=== PATIENT | male | born 1960 | race Two or more races ===

== ENCOUNTER 2023-10-25 17:19 | Emergency (ER) | payer BC ==
[2023-10-25 18:16] LABS: Absolute Basophils 0.1 K/uL (0-0.5); Absolute Eosinophils 0.5 K/uL (0-0.5); Absolute Lymphocytes (CBC) 1.7 K/uL (0.7-4.9); Absolute Monocytes 1.1 K/uL (0.1-1.3); Absolute Neutrophil 6.2 K/uL (1.8-8.0); Basophils % 0.7 % (0-1.3); Eosinophils % 5.6 % (0-4.4); Hematocrit 38.9 % (39.6-49.0); Hemoglobin 12.9 g/dL (13.6-17.9); Lymphocytes % 17.6 % (15.3-44.8); MCH 30.1 pg (27.0-35.0); MCHC 33.2 g/dL (32.0-36.0); MCV 90.9 fL (80-100); MPV 7.9 fL (7.6-11.3); Monocytes % 11.5 % (3.3-12.3); Neutrophils % 64.6 % (41.7-73.7); Platelets 182 thou/uL (152-406); RBC Red Blood Cell Count 4.28 M/uL (4.33-5.43); Red Cell Distribution Width 14.1 % (12.1-15.2)
[2023-10-25 18:33] LABS: Anion Gap 6.3 mEq/L (5.0-15.0); Potassium 3.3 mEq/L (3.5-5.1)
--- NOTE | 2023-10-25 18:36 | EDPHYS ---
Physician Documentation [facility] Name: Wilver Mott Age: 63 yrs Sex: Male : 1960 Arrival Date: 10/25/2023 Time: 17:19 Bed 7 Private MD: ED Physician Jose Gagnon HPI: 10/24 17:22 This 63 yrs old presents to ER via Unassigned with complaints of heat ec2 exposure. 17:22 patient is a 63-year-old transgender male to female individual. Patient arrives today ec2 due to concern for heat exhaustion. Patient reports poor fluid intake, no nausea or vomiting, reports that they felt tired and dehydrated, subsequently called EMS, EMS had started a liter of fluid with an IV and patient now feels markedly better.. Historical: - Allergies: 17:34 No Known Allergies; ld1 - PMHx: 17:34 Diabetes mellitus; Hypertensive disorder; ld1 - PSHx: 17:34 Tonsillectomy; ld1 - Immunization history:: Adult Immunizations up to date. - Infectious Disease History:: Denies. - Social history:: Smoking status: Patient denies any tobacco usage or history of. ROS: 17:22 Constitutional: as per hpi ec2 Exam: 17:22 Constitutional: GEN: NAD Head: atraumatic Eyes: EOMI Ears: External ears are ec2 normal. CV: regular rate LUNGS: no respiratory distress ABD: non-distended SKIN: no evidence of rashes MSK: no evidence of trauma Vital Signs: 17:33 BP 116 / 69; Pulse 89; Resp 18; Temp 98.1(TE); Pulse Ox 100% on R/A; Weight 81.65 kg; ld1 Height 5 ft. 10 in. ; Pain 0/10; 18:22 BP 107 / 69; Pulse 83; Resp 18; Pulse Ox 100% on R/A; mb9 17:33 Body Mass Index 25.83 (81.65 kg, 177.8 cm) ld1 17:33 Pain Scale: Adult ld1 MDM: 17:20 Patient medically screened. ec2 17:22 Data reviewed: vital signs. ED course: Patient arrives today for evaluation of heat ec2 exhaustion. Examination remarkable for well-appearing nontoxic individuals otherwise in no acute distress with a reassuring examination. Will obtain basic lab work, CPK. Evaluating for electrolyte disturbances, anemia, dehydration, heat exhaustion. Will give the patient additional crystalloid as well.. 18:36 ED course: Labs nonactionable. On reassessment patient remains well-appearing in no ec2 acute distress. Will discharge home. Return precautions given.. 10/24 17:21 Order name: CBC with Diff; Complete Time: 18:35 ec2 10/24 17: Order name: BMP; Complete Time: 18:35 ec2 10/24 17: Order name: CK; Complete Time: 18:35 ec2 Administered Medications: 17:30 Drug: NS 0.9% IV 1000 ml IV at 1 bolus Per protocol; 1000 mL bolus Route: IV; Rate: 1 ar6 bolus; Site: left antecubital; 18:23 Follow up: Response: No adverse reaction; IV Status: Completed infusion mb9 Disposition Summary: 10/25/23 18:36 Discharge Ordered Notes: Location: Home ec2 Condition: Stable ec2 Diagnosis - Dehydration ec2 Followup: ec2 - With: Private Physician - When: - Reason: Re-evaluation by your physician Discharge Instructions: - Discharge Summary Sheet ec2 - Dehydration, Adult ec2 Forms: - Medication Reconciliation Form ec2 - Antibiotic Education ec2 - Prescription Opioid Use ec2 - Patient Portal Instructions ec2 - Leadership Thank You Letter ec2 Signatures: Dispatcher [employer] Kim Real RN RN ld1 Jose Gagnon MD MD ec2 Mishel Beyer RN RN ar6 Daniella Szymanski RN mb9 Corrections: (The following items were deleted from the chart) 17:34 17:34 Allergies: Aspirin; ld1 ld1
--- NOTE | 2023-10-25 18:36 | ER ---
Nurse's Notes [facility] Name: Wilver Mott Age: 63 yrs Sex: Male : 1960 Arrival Date: 10/25/2023 Time: 17:19 Bed 7 Private MD: Diagnosis: Dehydration Presentation: 10/24 17:25 Coronavirus screen: At this time, the client does not indicate any symptoms associated ld1 with coronavirus-19. Ebola Screen: No symptoms or risks identified at this time. Initial Sepsis Screen: Does the patient meet any 2 criteria? No. Patient's initial sepsis screen is negative. Does the patient have a suspected source of infection? No. Patient's initial sepsis screen is negative. Risk Assessment: Do you want to hurt yourself or someone else? Patient reports no desire to harm self or others. Onset of symptoms was October 25, 2023. 17:25 Method Of Arrival: EMS: [facility] ld1 17:25 Acuity: CHAD 3 ld1 17:33 Chief complaint: EMS states: toned out to side of road - pt trying to get to [facility]. ld1 C/O dehydration/over heated. Triage Assessment: 17:25 General: Appears in no apparent distress. comfortable, Behavior is calm, cooperative, ld1 appropriate for age. Pain: Denies pain. EENT: No signs and/or symptoms were reported regarding the EENT system. Neuro: Level of Consciousness is awake, alert, obeys commands, Oriented to person, place, time, situation, Appropriate for age. Cardiovascular: Capillary refill < 3 seconds Patient's skin is warm and dry. Respiratory: Airway is patent Respiratory effort is even, unlabored. GI: Abdomen is flat, non-distended. : No signs and/or symptoms were reported regarding the genitourinary system. Derm: No signs and/or symptoms reported regarding the dermatologic system. Musculoskeletal: No signs and/or symptoms reported regarding the musculoskeletal system. Historical: - Allergies: 17:34 No Known Allergies; ld1 - PMHx: 17:34 Diabetes mellitus; Hypertensive disorder; ld1 - PSHx: 17:34 Tonsillectomy; ld1 - Immunization history:: Adult Immunizations up to date. - Infectious Disease History:: Denies. - Social history:: Smoking status: Patient denies any tobacco usage or history of. Screenin:34 [facility] ED Fall Risk Assessment (Adult) History of falling in the last 3 months, ld1 including since admission No falls in past 3 months (0 pts) Confusion or Disorientation No (0 pts) Intoxicated or Sedated No (0 pts) Impaired Gait No (0 pts) Mobility Assist Device Used No (0 pt) Altered Elimination No (0 pt) Score/Fall Risk Level 0 - 2 = Low Risk Oriented to surroundings, Maintained a safe environment, Educated pt \T\ family on fall prevention, incl call for assistance when getting out of bed, Assessed \T\ reinforced patient's understanding of fall precautions, Provided non-skid footwear, Hourly rounding (assess needs \T\ fall precautionary measures) done, Used ambulatory aids as needed (educated on \T\ assisted with), Used gait belt as appropriate. Abuse screen: Denies threats or abuse. Denies injuries from another. Nutritional screening: No deficits noted. Tuberculosis screening: No symptoms or risk factors identified. Assessment: 17:34 Reassessment: See triage assessment. ld1 Vital Signs: 17:33 BP 116 / 69; Pulse 89; Resp 18; Temp 98.1(TE); Pulse Ox 100% on R/A; Weight 81.65 kg; ld1 Height 5 ft. 10 in. ; Pain 0/10; 18:22 BP 107 / 69; Pulse 83; Resp 18; Pulse Ox 100% on R/A; mb9 17:33 Body Mass Index 25.83 (81.65 kg, 177.8 cm) ld1 17:33 Pain Scale: Adult ld1 ED Course: 17:20 Patient arrived in ED. ec2 17:20 Jose Gagnon MD is Attending Physician. ec2 17:25 Kim Gomez, TIMO is Primary Nurse. ld1 17:25 Triage completed. ld1 17:25 Arm band placed on right wrist. ld1 17:34 Patient has correct armband on for positive identification. Placed in gown. Bed in low ld1 position. Call light in reach. Side rails up X2. metal coater on. Pulse ox on. NIBP on. Door closed. Noise minimized. Warm blanket given. 18:06 CK Sent. ar6 18:07 BMP Sent. ar6 18:07 CBC with Diff Sent. ar6 18:46 No provider procedures requiring assistance completed. IV discontinued, intact, mb9 bleeding controlled, No redness/swelling at site. Pressure dressing applied. Administered Medications: 17:30 Drug: NS 0.9% IV 1000 ml IV at 1 bolus Per protocol; 1000 mL bolus Route: IV; Rate: 1 ar6 bolus; Site: left antecubital; 18:23 Follow up: Response: No adverse reaction; IV Status: Completed infusion mb9 Medication: 18:22 VIS not applicable for this client. mb9 Outcome: 18:36 Discharge ordered by . [email or web address] 18:46 Discharged to home ambulatory, mb9 18:46 Condition: stable 18:46 Discharge instructions given to patient, Instructed on discharge instructions, follow up and referral plans. Demonstrated understanding of instructions, follow-up care, 18:46 Patient left the ED. mb9 Signatures: Kim Gomez RN RN ld1 Daniella Szymanski RN RN mb9 Jose Gagnon MD MD ec2 Roberts, Amber RN RN ar6 Corrections: (The following items were deleted from the chart) 17:34 17:34 Allergies: Aspirin; ld1 ld1
[2023-10-25 18:55] VITALS: TEMP 98.1; O2SAT 100
[2023-10-25 18:57] VITALS: BP 107/69
== END 2023-10-25 18:46 | disposition home or self-care (01) ==
LOC: ER 17:19
DX: E86.0 Dehydration (principal)
CPT/HCPCS: 36415; 80048; 82550; 85025

== ENCOUNTER 2023-10-29 20:41 | Emergency (ER) | payer BC ==
--- OUTSIDE RECORDS SUMMARY | 2023-10-29 20:44 | XMS REPORT | Continuity of Care Document ---
Author Name Unknown Address [address] [facility] [address] [place] [address] [facility] thconnect Address [address] [facility] [place] [address] Care Team Providers Care Office Assistant Receptionist Name Role Phone Iftikhar Amaya Attending Clinician Héctor Carcamo Admitting Clinician Unavailable Payers Payer Name Policy Type Policy Number Effective Date Expirati on Date Source [facility] [id number] [facility] [id number] Allergies, Adverse Reactions, Alerts Allergy Name Allergy Type Status Severity Reaction(s) Onset Date Inactive Date Treating Clinician Comments Source epinephr ine DA Active U UNKNOWN 09-29 00:00: 00 [facility] Insect Stings EA Active Life[employer] Wasp EA Active LifeBook No Known/Ne w Allergie s Allergy Active Zscaler Encounters Start Date/Time End Date/Time Encounter Type Admission Type Attending Clinicians Care Facility Care Department Encounter ID Source 2023-10-20 09:10:28 Emergency HFD HFD [id number] [facility] ent 2023-09-29 14:40:00 Outpatient [facility] [id number] [facility] 2023-09-28 14:55:02 Outpatient [facility] [id number] [facility] 2023-09-30 06:51:00 2023-09-30 12:28:00 Emergency EM Iftikhar Amaya [facility] [id number] [facility] 2023-06-16 00:00:00 2023-06-16 00:00:00 Outpatient [facility] [id number] [facility] 2023-05-17 00:00:00 2023-05-17 00:00:00 Outpatient [facility] MED [id number] [facility] 2023-05-03 00:00:00 2023-05-03 00:00:00 Outpatient [facility] [id number] [facility] 2023-04-05 00:00:00 2023-04-05 00:00:00 Outpatient [facility] MED [id number] [facility] 2023-03-27 00:00:00 2023-03-27 00:00:00 Outpatient [facility] MED [id number] [facility] 2023-03-23 00:00:00 2023-03-23 00:00:00 Outpatient [facility] [id number] [facility] 2023-03-07 00:00:00 2023-03-07 00:00:00 Outpatient [facility] [id number] [facility] 2023-02-21 00:00:00 2023-02-21 00:00:00 Outpatient [facility] [id number] [facility] 2023-02-17 00:00:00 2023-02-17 00:00:00 Outpatient [facility] [id number] [facility] 2023-02-07 00:00:00 2023-02-07 00:00:00 Outpatient [facility] MED [id number] [facility] 2023-01-20 00:00:00 2023-01-20 00:00:00 Outpatient [facility] MED [id number] [facility] Results Test Description Test Time Test Comments Results Result Co mments Source [id number] 09:24:00* Test Item Value Reference Range Interpretation Comme nts D-DIMER (test code = DDIMER) <215 ng/mLFEU 215-500 L THROMBOSIS AND/O R PULMONARY EMBOLISM AND THE CLINICAL CUT-OFF VALUE FOR EXCLUSION (500 ng/mL FEU) OF THESE CONDITIONSIS VALIDATED BY THE PET FEEDER OF THE METHOD. A NEGATIVE D-DIMER RESULT WHEN COMBINED WITH A CLINICALASSESSMENT OF LOW PRETEST PROBABILITY HAS BEEN SHOWN TO HAVEA HIGH NEGATIVE PREDICTIVE VALUE OF DVT OR PE. D-DIMER VALUES >500 ng/mL FEU ARE NOT DIAGNOSTIC FOR DVT, PEor DIC WITHOUT OTHER CONFIRMATORY TESTS AND APPROPRIATECLINICAL EUALUATIONS. BASIC METABOLIC [id number] 08:50:00* Test Item Value Reference Range Interpretation Comme nts SODIUM (test code = NA) 144 mmol/L 136-145 N POTASSIUM (test code = K) 3.8 mmol/L 3.4-5.0 N CHLORIDE (test code = CL) 105 mmol/L 98-107 N CARBON DIOXIDE (test code = CO2) 30 mmol/L 21-32 N ANION GAP (test code = GAP) 9 GAP calc 4-15 N GLUCOSE (test code = GLU) 65 MG/DL 70-110 L BLOOD UREA NITROGEN (test code = BUN) 14 MG/DL 7-18 N GLOMERULAR FILTRATION RATE (test code = GFR) >=60 max estimate estGFR >60 The Glomerular Filtration Rate is a calculated parameterbased on serum Creatinine, patient age and sex. GFR valuesless than 60 mL/min/1.73 square meters are indicative ofChronic Kidney Disease. Values less than 15 mL/min/1.73square meters indicate Kidney failure. The calculation forGFR is based on the CKD-EPI (202) calculation. This formulais race indifferent and is the recommended formula for GFRby the National Kidney Foundation for Adults.The GFR will not calculate if the sex is unknown or if thepatient's age is <18 years. CREATININE (test code = CREAT) 0.8 MG/DL 0.6-1.0 N CALCIUM (test code = CA) 9.4 MG/DL 8.5-10.1 N HEPATIC FUNCTION [id number] 08:50:00* Test Item Value Reference Range Interpretation Comme nts TOTAL PROTEIN (test code = PROT) 7.4 G/DL 6.4-8.2 N ALBUMIN (test code = ALB) 3.7 G/DL 3.4-5.0 N BILIRUBIN TOTAL (test code = BILT) 0.7 MG/DL 0.0-1.0 N BILIRUBIN DIRECT (test code = BILD) 0.2 MG/DL 0.0-0.3 N BILIRUBIN INDIRECT (test cod e = BILIND) 0.50 MG/DL 0.2-1.2 N SGOT/AST (test code = AST) 25 Unit/L 15-37 N SGPT/ALT (test code = ALT) 37 Unit/L 30-65 N ALKALINE PHOSPHATASE TOTAL ( test code = ALKP) 77 Unit/L 50-136 N CREATINE KINASE (CK)2023-09-30 08:50:00* Test Item Value Reference Range Interpretation Comme nts CREATINE KINASE (CK) (test c ode = CK) 75 Unit/L 21-215 N [id number] 08:50:00* Test Item Value Reference Range Interpretation Comme nts LIPASE (test code = LIP) 39 Unit/L 13-75 N NT PRO-BRAIN NATRIURETIC [id number] 08:50:00* Test Item Value Reference Range Interpretation Comme nts NT PRO-BRAIN NATRIURETIC PEP TI (test code = PROBNP) 101 PG/ML 0-100 H TROP-I HIGH [id number] 08:50:00* Test Item Value Reference Range Interpretation Comme nts TROP-I HIGH SENSITIVITY (test code = TROPIHS) 4.1 ng/L 0-78 N CAUTION: Units o f the current test methodology (ng/L) differfrom the prior test methodology (ng/mL) by a factor of 1000. 99th Percentile Upper Reference Limit (URL):Females: 54 ng/LMales: 79 ng/L In order to distinguish acute elevations of high sensitivitytroponin from other clinical conditions, the FourthUniversal Definition of Myocardial Infarction stressesclinical assessment and the demonstration of a rise and/orfall in serial troponin results above the URL. Results from different methodologies should not be comparedto one another as quantitative results and URLs may varyby method. Notes Date/Time Note Provider Source 2023-09-30 07:41:00 [facility] ([facility]) EMERGENCY PROVIDER REPORT REPORT#:[id number] REPORT STATUS: Signed DATE:09/30/23 TIME:740 PATIENT: SANAZ JAY UNIT #: [id number] ROOM/BED: : 61 AGE: 63 SEX: M PCP PHYS: Héctor Hebert MD SERVICE AUTHOR: Iftikhar Amaya MD * ALL edits or amendments must be made on the electronic/computer document * HPI-General Illness Free Text HPI Notes Free Text HPI Notes ##HPI Patient with reported history of hypertension diabetes presents today with concerns of chest pain. Patient reports she lives at a group home house. Patient was in an argument with somebody. Patient reports she experienced intermittent pain to the middle of the chest after the argument. On presentation, patient reports she feels better. She denies active chest pain, shortness of breath palpitations. No fever chills or sweats. [## Electrocardiogram] ## EKG interpretation done by emergency medicine physician (Dr. Olvera) EKG done during the patient's visit on 09/30/2023 done and interpreted at 719, shows ventricular rate of 60, normal [place] interval, normal QRS, normal QTc.. EKG does not meet STEMI Criteria. ##Review of Systems Constitutional symptoms: Negative except as documented in HPI. Skin symptoms: Negative except as documented in HPI. Eye symptoms: Negative except as documented in HPI. ENMT symptoms: Negative except as documented in HPI. Respiratory symptoms: Negative except as documented in HPI. Cardiovascular symptoms: Negative except as documented in HPI. Gastrointestinal symptoms: Negative except as documented in HPI. Genitourinary symptoms: Negative except as documented in HPI. Musculoskeletal symptoms: Negative except as documented in HPI. Neurologic symptoms: Negative except as documented in HPI. Psychiatric symptoms: Negative except as documented in HPI. Endocrine symptoms: Negative except as documented in HPI. Hematologic/Lymphatic symptoms: Negative except as documented in HPI. Allergy/immunologic symptoms: Negative except as documented in HPI. [##Physical Exam] General: Alert, no acute distress, Not ill-appearing. Skin: Warm, intact, no pallor, appropriate for ethnicity. Head: Atraumatic. Eye: Extraocular movements are intact, normal conjunctiva. Cardiovascular: Regular rate and rhythm, No murmur, Normal peripheral perfusion , No edema. Respiratory: Lungs are clear to auscultation, respirations are non-labored, breath sounds are equal, Symmetrical chest wall expansion. Gastrointestinal: Soft, Nontender, Non distended. Back: Normal range of motion. Musculoskeletal: Normal ROM. Neurological: Alert and oriented to person, place, time, and situation, normal motor observed, normal speech observed. No focal deficits noted. Psychiatric: Cooperative, appropriate mood affect. ##Medical decision making Patient presenting with atypical chest pain. Patient reports he experienced some chest discomfort after arguing with a person at a group home home. On presentation, patient denies active chest pain, shortness of breath palpitations. Patient heart score is low. Presentation is not consistent with ACS. There is low concern for ACS at this time. Troponin negative x2 with negative delta troponin. EKG without signs of acute ischemia, not consistent with STEMI, see EKG read above. There is low concern for STEMI NSTEMI angina unstable angina. 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 Low concern for acute pulm embolism, low concern for dissection. White blood cell count normal. Patient eating and drinking without difficulty. Low concern for emergent pathology. Patient stable for outpatient follow-up. Given the large differential diagnosis for this patient, the decision making in this case is of high complexity. After evaluating all available data, history of physical examination as well as results of the work-up, patient's presentation is not consistent with but not limited to ACS, STEMI, NSTEMI, myocardial ischemia, pulmonary embolism, acute aortic dissection, Boerhaave's syndrome, arrhythmia, pneumothorax, cardiac tamponade, pneumonia, severe COPD, severe asthma, severe CHF. All results were discussed with patient. All questions were answered Plan to follow-up with primary care doctor and cardiology in 24 to 48 hours. Return precautions were discussed with patient Dispo: Discharge I have spoken with the patient and/or caregivers. I have explained the patient's condition, diagnoses and treatment plan based on the information available to me at this time. I have answered the patient's and/or caregiver's questions and addressed any concerns. The patient and/or caregivers have as good an understanding of the patient's diagnosis, condition and treatment plan as can be expected at this point. The vital signs have been stable. The patient's condition is stable and appropriate for discharge from the emergency department. The patient will pursue further outpatient evaluation with the primary care physician or other designated or consulting physician as outlined in the discharge instructions. The patient and/or caregivers are agreeable to this plan of care and follow-up instructions have been explained in detail. The patient and/or caregivers have received these instructions in written format and have expressed an understanding of the discharge instructions. The patient and/or caregivers are aware that any significant change in condition or worsening of symptoms should prompt an immediate return to this or the closest emergency department or a call to 911. Iftikhar Melendez MD Emergency Medicine General Initial Greet Date/Time 09/30/23 0657 Presentation Chief Complaint chest pain Risk Strat-Chest Pain CAD risk: risk factors reviewed TAD risk: risk factors reviewed PE risk: risk factors reviewed Risk-Chest Pain 40 and Over Risk Stratification HEART Score for MACE 0-3 (low risk 0.9%-1.7%) Past Medical History - Adult Stated Complaint CHEST PAIN Allergies Coded Allergies: epinephrine (UNKNOWN 09/30/23) Smoking status for patients 13 years old or older: Unknown,if ever smoked Physical Exam Vital Signs Vital Signs First Documented: Result Date Time Pulse Ox 99 09/29 0654 B/P 101/58 09/29 0654 B/P Mean 72 09/29 0654 O2 Delivery Room air 09/29 0654 Temp 96.9 09/29 0654 Pulse 60 09/29 0654 Resp 17 09/29 0554 Last Documented: Result Date Time Pulse Ox 99 09/29 0654 B/P 101/58 09/29 0654 B/P Mean 72 09/29 0654 O2 Delivery Room air 09/29 0654 Temp 96.9 09/29 0654 Pulse 60 09/29 0654 Resp 17 09/29 0654 Review of Vital Signs Reviewed Interpretation Diagnostics Lab Results Interpretation Results Laboratory Tests 09/30/23 0749: [Embedded Image Not Available] Laboratory Tests: 09/29 09/29 09/29 1116 0749 0725 Chemistry Sodium (136 - 145 mmol/L) 144 Potassium (3.4 - 5.0 mmol/L) 3.8 Chloride (98 - 107 mmol/L) 105 Carbon Dioxide (21 - 32 mmol/L) 30 Anion Gap (4 - 15 GAP calc) 9 BUN (7 - 18 MG/DL) 14 Creatinine (0.6 - 1.0 MG/DL) 0.8 Glomerular Filtr Rate (>60 estGFR) >=60 max estimate Glucose (70 - 110 MG/DL) 65 L Calcium (8.5 - 10.1 MG/DL) 9.4 Total Bilirubin (0.0 - 1.0 MG/DL) 0.7 Direct Bilirubin (0.0 - 0.3 MG/DL) 0.2 Indirect Bilirubin (0.2 - 1.2 MG/DL) 0.50 AST (15 - 37 Unit/L) 25 ALT (30 - 65 Unit/L) 37 Total Alk Phosphatase (50 - 136 Unit/L) 77 Total Creatine Kinase (21 - 215 Unit/L) 75 Troponin I High Sens (0 - 78 ng/L) 5.1 4.1 NT-Pro-B Natriuret Pep (0 - 100 PG/ML) 101 H Total Protein (6.4 - 8.2 G/DL) 7.4 Albumin (3.4 - 5.0 G/DL) 3.7 Lipase (13 - 75 Unit/L) 39 Coagulation D-Dimer (215 - 500 ng/mLFEU) <215 L Hematology WBC (3.5 - 11.0 K/mm3) 8.8 RBC (4.70 - 6.10 M/mm3) 5.53 Hgb (12.3 - 15.9 G/DL) 16.1 H Hct (35.8 - 46.7 %) 50.3 H MCV (86.3 - 98.9 Fl) 91.0 MCH (28.9 - 34.4 pg) 29.1 MCHC (32.1 - 34.5 G/DL) 32.0 L RDW (11.5 - 14.5 SD) 13.2 Plt Count (150 - 450 K/mm3) 231 MPV (7.0 - 9.6 fL) 9.10 Recent Impressions: RADIOLOGY - XR CHEST 1 V 09/29 0703 Report Impression - Status: SIGNED Entered: 09/30/2023 0714 IMPRESSION: No acute cardiopulmonary findings. Impression By: Deepak Kemp M.D. Re-Evaluation MDM ED Course Medication(s) Ordered Medication(s) Ordered: Central Nervous System Agents Sig/Angel Start time Last Medication Dose Route Stop Time Status Admin Aspirin 324 MG X1ED STA 09/29 0657 CAN PO 09/29 0658 Hormones And Synthetic Substit Sig/Angel Start time Last Medication Dose Route Stop Time Status Admin Insulin Human Regular 10 UNIT ONCE ONE 09/29 0745 CAN IV 09/29 0746 Patient Discharge Departure Vital Signs/Condition Vital Signs First Documented: Result Date Time Pulse Ox 99 09/29 0654 B/P 101/09/29 0654 B/P Mean 72 09/29 0654 O2 Delivery Room air 09/29 0654 Temp 96.9 09/29 0654 Pulse 60 09/29 0654 Resp 17 09/29 0654 Last Documented: Result Date Time Pulse Ox 99 09/29 0654 B/P 101/58 07/27 0654 B/P Mean 72 07/27 0654 O2 Delivery Room air 09/29 653 Temp 96.9 09/29 653 Pulse 60 09/29 653 Resp 17 09/29 653 All vital signs available at the time of this entry have been reviewed. Condition Improved Clinical Impression Clinical Impression Primary Impression: Chest pain Disposition Decision Discharge )( Discharged to Home Yes )( Time 1151 )( Date 09/30/23 Discharge/Care Plan Counseled Regarding Diagnosis, Lab results, Imaging studies, Need for follow-up, When to return to ED Patient Instructions ED Chest Pain, Uncertain Cause Additional Instructions DISCHARGE INSTRUCTIONS--- follow-up as an outpatient with recovery unit operator Even though you have been discharged from the Emergency Department, there are several things that you should do to ensure that you receive proper care: 1. DO READ your discharge instructions as these contain important information concerning your medical care. 2. If medication has been prescribed for your condition, fill the prescription as soon as possible and follow the directions on the medication. 3. RETURN TO THE EMERGENCY DEPARTMENT if you have any problems or concerns. These include but are not limited to fever, worsening pain (belly, chest, head, etc ), worsening shortness of breath, uncontrollable bleeding, inability to tolerate food and water, or any condition that makes you question your well- being. Also, if your symptoms do not improve in the next 12-24 hours, return to the ER or seek medical care immediately. 4. Be sure to follow up with your regular physician or specialist as instructed at discharge as this is the best way to ensure that you receive the very best of care. If you do not have a primary care physician, please contact a physician group and make an appointment. You need to follow up with a primary care doctor as discussed. Referrals Provider Referral: Jenni Nieto MD Address: [address] [place] [address] Provider Referral: Donnie Ruvalcaba MD Address: [address] [place] [address] Provider Referral: Vance Vizcarra MD Address: [facility] [place] [place] [address] Provider Referral: Amalia Marinelli MD Address: [address] [place] [address] [address] [place] [address] Provider Referral: Marta Lee MD Address: [address] [place], [place] [id number] [place] [address] Provider Referral: Corby Nettles MD Address: [address] [place] [address] Provider Referral: Carter Lemos MD Address: [address] [facility] [address] [place] [address] Provider Referral: Osmel Ferrari MD Address: [address] [facility] [address] [place] [address] Provider Referral: Katherine Mcneal NP Address: [id number] [place] [address] [address] [place] [address] Provider Referral: Juan Carlos Abdi MD Address: [address] [facility] [address] [place] [address] Provider Referral: Enriqueta Mccarthy APRN Address: [address] [place] [address] Provider Referral: Guerita Owens III, III, MD Address: [address] [facility] [address] [place] [address] Provider Referral: Christopher Fermin MD Address: [address] [facility] [address] [place] [address] Provider Referral: Elie Alnozo MD Address: [address] [facility] [address] [place] [address] at 1226 RPT #: [id number] END OF REPORT HCAPM
[2023-10-29 22:13] LABS: Absolute Eosinophils 0.6 K/uL (0-0.5); Absolute Lymphocytes (CBC) 1.4 K/uL (0.7-4.9); Absolute Monocytes 0.8 K/uL (0.1-1.3); Absolute Neutrophil 5.3 K/uL (1.8-8.0); Basophils % 0.5 % (0-1.3); Eosinophils % 7.3 % (0-4.4); Hematocrit 37.1 % (39.6-49.0); Hemoglobin 12.7 g/dL (13.6-17.9); Lymphocytes % 17.3 % (15.3-44.8); MCHC 34.2 g/dL (32.0-36.0); MCV 90.6 fL (80-100); MPV 7.1 fL (7.6-11.3); Monocytes % 10.3 % (3.3-12.3); Neutrophils % 64.6 % (41.7-73.7); Nucleated Red Blood Cells % 0.1 % (0-0); Platelets 237 thou/uL (152-406); Red Cell Distribution Width 14.4 % (12.1-15.2)
[2023-10-29 22:24] LABS: Anion Gap 8.7 mEq/L (5.0-15.0); Potassium 3.7 mEq/L (3.5-5.1); Troponin High Sensitivity 4.6 pg/mL (<58.9)
--- NOTE | 2023-10-29 22:24 | RAD REPORT ---
EXAM DESCRIPTION: US - Extrem Venous W Compress Daryn - 10/29/2023 9:03 pm CLINICAL HISTORY: Pain, swelling COMPARISON: None. TECHNIQUE: Real-time sonographic evaluation of the bilateral lower extremity deep venous systems was performed. FINDINGS: Normal compressibility, flow augmentation, phasic flow and spontaneous flow is identified in both the left and right lower extremity deep venous systems. No intraluminal filling defects seen. IMPRESSION: No DVT in either lower extremity.
--- NOTE | 2023-10-29 22:30 | RAD REPORT ---
EXAM DESCRIPTION: Tio Single View10/29/2023 9:44 pm CLINICAL HISTORY: CHEST PAIN COMPARISON: No comparisons TECHNIQUE: Portable AP view of the chest. FINDINGS: Questionable right apical mild airspace opacification. No pneumothorax or effusion. The c ardiomediastinal contours are unremarkable. IMPRESSION: Questionable right apical mild airspace opacification, may reflect atelectasis/scarring or early airspace disease.
--- NOTE | 2023-10-30 00:52 | ER ---
Nurse's Notes [facility] Jose Carlos Name: Wilver Mott Age: 63 yrs Sex: Male : 1960 Arrival Date: 10/29/2023 Time: 20:41 Bed 20 Private MD: Diagnosis: Cellulitis of left lower limb;Cellulitis of right lower limb;Chest pain, unspecified Presentation: 10/28 20:44 Chief complaint: EMS states: c/o chest pain midsternal/epigastric after becoming me1 emotional. c/o bilateral feet and leg pain. Reports BLE have been red and swollen for 3-4 days. Coronavirus screen: Vaccine status: Patient reports receiving the 2nd dose of the covid vaccine. Ebola Screen: No symptoms or risks identified at this time. Initial Sepsis Screen: Does the patient meet any 2 criteria? No. Patient's initial sepsis screen is negative. Does the patient have a suspected source of infection?. Risk Assessment: Do you want to hurt yourself or someone else? Patient reports no desire to harm self or others. Onset of symptoms was October 29, 2023. 20:44 Method Of Arrival: EMS: [facility] me1 20:44 Acuity: CHAD 3 me1 Triage Assessment: 20:47 General: Appears. me1 21:01 General: Appears uncomfortable, well developed, well nourished, Behavior is calm, me1 cooperative, appropriate for age, Reports. Historical: - Allergies: 20:47 No Known Allergies; me1 - PMHx: 20:47 diabetes mellitus; Hypertensive disorder; Seizure; hyperlipidemia; insomnia; me1 - PSHx: 20:47 Tonsillectomy; gastric sleeve; me1 - Immunization history:: Adult Immunizations up to date. - Infectious Disease History:: Denies. - Social history:: Smoking status: Patient reports the use of cigarette tobacco products, smokes one-half pack cigarettes per day. Screenin:05 [facility] ED Fall Risk Assessment (Adult) History of falling in the last 3 months, me1 including since admission No falls in past 3 months (0 pts) Confusion or Disorientation No (0 pts) Intoxicated or Sedated No (0 pts) Impaired Gait No (0 pts) Mobility Assist Device Used No (0 pt) Altered Elimination No (0 pt) Score/Fall Risk Level 0 - 2 = Low Risk Maintained a safe environment, Provided non-skid footwear, Hourly rounding (assess needs \T\ fall precautionary measures) done. Abuse screen: Denies threats or abuse. Nutritional screening: No deficits noted. Tuberculosis screening: No symptoms or risk factors identified. Assessment: 21:05 General: Appears uncomfortable, well developed, well nourished, Behavior is calm, me1 cooperative, appropriate for age, Reports c/o chest pain midsternal/epigastric after becoming emotional. c/o bilateral feet and leg pain. Reports BLE have been red and swollen for 3-4 days. Pain: Complains of pain in right leg, left lateral ankle, lateral aspect of left foot, left Achilles, left heel, left medial ankle, medial aspect of left foot, anterior aspect of left ankle and dorsum of left foot Pain does not radiate. Pain currently is 7 out of 10 on a pain scale. Quality of pain is described as throbbing, Pain began suddenly, Is continuous. Neuro: Level of Consciousness is awake, alert, obeys commands, Oriented to person, place, time, situation, Appropriate for age. Cardiovascular: Patient's skin is warm and dry. Cardiovascular: Reports chest pain. Respiratory: Airway is patent Trachea midline Respiratory effort is even, unlabored, Respiratory pattern is regular, symmetrical. GI: No signs and/or symptoms were reported involving the gastrointestinal system. : No signs and/or symptoms were reported regarding the genitourinary system. EENT: No signs and/or symptoms were reported regarding the EENT system. Derm: Skin is intact, is healthy with good turgor, Skin is pink, warm \T\ dry. Musculoskeletal: Reports pain in right leg, left lateral ankle, lateral aspect of left foot, left Achilles, left heel, left medial ankle, medial aspect of left foot, anterior aspect of left ankle and dorsum of left foot. Vital Signs: 20:44 BP 117 / 74; Pulse 71; Resp 16; Temp 98.7; Pulse Ox 100% ; Weight 77.11 kg; Height 5 me1 ft. 10 in. ; Pain 7/10; 22:00 BP 118 / 72; Pulse 79; Resp 11; Pulse Ox 99% on R/A; me1 23:00 BP 106 / 59; Pulse 67; Resp 13; Pulse Ox 98% on R/A; me1 10/29 00:53 BP 104 / 57; Pulse 68; Resp 16; Pulse Ox 98% on R/A; pc2 10/28 20:44 Body Mass Index 24.39 (77.11 kg, 177.8 cm) me1 10/28 20:44 Pain Scale: Adult la1 ED Course: 10/28 20:43 Patient arrived in ED. kb 20:43 [facility]adas [facility]C [facility]. kb 20:43 Gato Sanches MD is Attending Physician. kb 20:44 Rose Terry RN is Primary Nurse. me1 20:47 Triage completed. me1 21:04 US Extremity Venous W Compression Daryn In Process Unspecified. EDMS 21:05 Patient has correct armband on for positive identification. Bed in low position. Call me1 light in reach. Side rails up X2. Provided Education on: POC. Verbalized understanding. . Client placed on continuous cardiac and pulse oximetry monitoring. NIBP monitoring applied. business development sales executive on. Pulse ox on. NIBP on. 21:05 No provider procedures requiring assistance completed. me1 21:38 Initial lab(s) drawn, by me, sent to lab. Inserted saline lock: 24 gauge in right hand, me1 using aseptic technique. 21:39 Basic Metabolic Panel Sent. me1 21:39 CBC with Diff Sent. me1 21:39 NT PRO-BNP Sent. me1 21:39 Troponin HS Sent. me1 21:46 XRAY Chest (1 view) In Process Unspecified. EDMS 21:52 EKG done, by ED staff, reviewed by Eleni COHEN. me1 10/29 00:51 Report received from TIMO Rose. pc2 00:51 Arm band placed on right wrist. pc2 01:25 IV discontinued, intact, bleeding controlled, No redness/swelling at site. Pressure pc2 dressing applied. Administered Medications: 01:15 Drug: Cephalexin PO 500 mg PO once Route: PO; pc2 01:24 Follow up: Response: No adverse reaction; Medication administered at discharge. pc2 Medication: 10/28 21:05 VIS not applicable for this client. la1 Outcome: 10/29 00:51 Discharge ordered by . kb 01:24 Discharged to home ambulatory, pc2 01:24 Condition: stable 01:24 Discharge instructions given to patient, Instructed on discharge instructions, follow up and referral plans. medication usage, Demonstrated understanding of instructions, follow-up care, medications, Prescriptions given X 01:25 Patient left the ED. pc2 Signatures: Dispatcher [employer] Eleni Kingsley, Rose Jenkins, RN RN me1 Erin Thorpe, RN RN pc2 Corrections: (The following items were deleted from the chart) 10/28 20:50 20:47 PMHx: adenoidectomy; me1 me1 21:05 20:44 Chief complaint: EMS states: c/o chest pain midsternal/epigastric after becoming me1 emotional. c/o bilateral feet and leg pain. Reports BLE have been red and swollen for 3-4 days. me1
--- NOTE | 2023-10-30 00:52 | EDPHYS ---
Physician Documentation [facility] Name: Wilver Mott Age: 63 yrs Sex: Male : 1960 Arrival Date: 10/29/2023 Time: 20:41 Bed 20 Private MD: ED Physician Gato Sanches HPI: 10/29 00:43 This 63 yrs old Male presents to ER via EMS with complaints of Chest Pain, Leg Pain. kb 00:43 Pt is a 63 year old male who presents for chest pain that started after getting into an kb argument. States it has gotten better since the ambulance arrived. Pt also reports swelling and redness to bilateral legs for a week, worse over the last 4 days. States he walked from [place] to [place] and his legs have been swollen and red since then. States "it's not a sunburn." Denies fever, shortness of breath. Historical: - Allergies: 10/28 20:47 No Known Allergies; me1 - PMHx: 20:47 diabetes mellitus; Hypertensive disorder; Seizure; hyperlipidemia; insomnia; me1 - PSHx: 20:47 Tonsillectomy; gastric sleeve; me1 - Immunization history:: Adult Immunizations up to date. - Infectious Disease History:: Denies. - Social history:: Smoking status: Patient reports the use of cigarette tobacco products, smokes one-half pack cigarettes per day. ROS: 10/29 00:00 Constitutional: As per HPI kb Exam: 00:00 Constitutional: This is a well developed, well nourished patient who is awake, alert, kb and in no acute distress. Head/Face: Normocephalic, atraumatic. ENT: Moist Mucous membranes Cardiovascular: Regular rate Respiratory: Respirations even and unlabored. No increased work of breathing. Talking in full sentences Abdomen/GI: Soft, non-tender. No distention MS/ Extremity: Pulses equal, no cyanosis. Neurovascular intact. Full, normal range of motion. Neuro: Awake and alert, GCS 15, oriented to person, place, time, and situation. Moves all extremities. Normal gait. 00:00 ECG was reviewed by the Attending Physician. 00:00 Skin: cellulitis, that is minimal, on the right leg and left leg, Vital Signs: 10/28 20:44 BP 117 / 74; Pulse 71; Resp 16; Temp 98.7; Pulse Ox 100% ; Weight 77.11 kg; Height 5 me1 ft. 10 in. ; Pain 7/10; 22:00 BP 118 / 72; Pulse 79; Resp 11; Pulse Ox 99% on R/A; me1 23:00 BP 106 / 59; Pulse 67; Resp 13; Pulse Ox 98% on R/A; me1 10/29 00:53 BP 104 / 57; Pulse 68; Resp 16; Pulse Ox 98% on R/A; pc2 10/28 20:44 Body Mass Index 24.39 (77.11 kg, 177.8 cm) me1 10/28 20:44 Pain Scale: Adult me1 MDM: 10/28 20:43 Patient medically screened. kb 10/29 00:45 Differential diagnosis: acute stress reaction, acute mi, abnormal ekg, cellulitis, dvt. kb Data reviewed: vital signs, nurses notes. Consideration of Admission/Observation Escalation of care including admission/observation considered. Considered admission but serial troponin wnl, HEART score 2, pain resolved. . Historians other than the Patient: EMS: [facility]. Counseling: I had a detailed discussion with the patient and/or guardian regarding the historical points, exam findings, and any diagnostic results supporting the discharge/admit diagnosis, lab results, radiology results, the need for outpatient follow up, a family practitioner, to return to the emergency department if symptoms worsen or persist or if there are any questions or concerns that arise at home. 10/28 20:44 Order name: Basic Metabolic Panel; Complete Time: 22:33 kb 10/28 20:44 Order name: CBC with Diff; Complete Time: 22:33 kb 10/28 20:44 Order name: NT PRO-BNP; Complete Time: 22:33 kb 10/28 20:44 Order name: Troponin HS; Complete Time: 22:33 kb 10/28 23:44 Order name: Troponin High Sensitivity; Complete Time: 00:50 kb 10/28 20:44 Order name: XRAY Chest (1 view); Complete Time: 22:33 kb 10/28 20:44 Order name: US Extremity Venous W Compression Daryn; Complete Time: 22:33 kb 10/28 20:44 Order name: Cardiac monitoring; Complete Time: 21:52 kb 10/28 20:44 Order name: EKG - Nurse/Tech; Complete Time: 21:52 kb 10/28 20:44 Order name: IV Saline Lock; Complete Time: 21:39 kb 10/28 20:44 Order name: Labs collected and sent; Complete Time: 21:39 kb 10/28 20:44 Order name: O2 Per Protocol; Complete Time: 21:39 kb 10/28 20:44 Order name: O2 Sat Monitoring; Complete Time: 21:39 kb EC:00 Rate is 67 beats/min. Rhythm is regular. QRS Ada is Normal. SC interval is normal at kb 158 msec. QRS interval is normal at 82 msec. QT interval is normal at 412 msec. Administered Medications: 01:15 Drug: Cephalexin PO 500 mg PO once Route: PO; pc2 01:24 Follow up: Response: No adverse reaction; Medication administered at discharge. pc2 Disposition: 04:52 Co-signature as Attending Physician, Gato Sanches MD I reviewed the patient's care rt provided by the Advanced Practice Provider and agree with the diagnosis and treatment plan. Disposition Summary: 10/30/23 00:51 Discharge Ordered Notes: Location: Home kb Condition: Stable kb Diagnosis - Cellulitis of left lower limb kb - Cellulitis of right lower limb kb - Chest pain, unspecified kb Followup: kb - With: Emergency Department - When: As needed - Reason: Worsening of condition Followup: kb - With: Private Physician - When: 2 - 3 days - Reason: Recheck today's complaints, Continuance of care, Re-evaluation by your physician Discharge Instructions: - Discharge Summary Sheet kb - Cellulitis, Adult, [id number] kb - Nonspecific Chest Pain, Adult, [id number] kb Forms: - Medication Reconciliation Form kb - Antibiotic Education kb - Prescription Opioid Use kb - Patient Portal Instructions kb - Leadership Thank You Letter kb Prescriptions: - Cephalexin 500 mg Oral Capsule - take 1 capsule ORAL route every 8 hours for 10 days; 30 capsule; Refills: 0, kb Product Selection Permitted Signatures: Dispatcher [employer] Eleni Kingsley FNP-C FNP-Gato Juarez MD MD rt Rose Terry, TIMO RN me1 Erin Thorpe, RN RN pc2 Corrections: (The following items were deleted from the chart) 10/28 20:45 20:45 Extrem Venous W Compression Daryn+US.RAD.BRZ ordered. EDMS EDMS 20:50 20:47 PMHx: adenoidectomy; me1 me1
[2023-10-30] MEDS ORDERED: CEPHALEXIN 250 MG CAP ONE (01:10)
[2023-10-30 02:27] VITALS: BP 104/57; O2SAT 98
--- NOTE | 2023-10-30 09:59 | EKG ---
Test Date: 2023-10-29 Test Time: 21:44:24 Tractor Operator Battery: MEASUREMENT RESULTS: Intervals: Rate: 67 [place]: 158 QRSD: 82 QT: 390 QTc: 412 [place]: P: 65 W[place]: 158 QRS: 64 T: 61 INTERPRETIVE STATEMENTS: Normal sinus rhythm Normal ECG No previous ECG available for comparison Electronically Signed On 10-30-23 09:58:23 CDT by Vamshi Piña
== END 2023-10-30 01:25 | disposition home or self-care (01) ==
LOC: ER 20:41
DX: L03.116 Cellulitis of left lower limb (principal); L03.115 Cellulitis of right lower limb; R07.9 Chest pain, unspecified; E11.9 Type 2 diabetes mellitus without complications; I10 Essential (primary) hypertension; F17.210 Nicotine dependence, cigarettes, uncomplicated
CPT/HCPCS: 36415; 71045; 80048; 83880; 84484; 85025; 93005; 93970; 99285

== ENCOUNTER 2023-10-30 05:23 | Emergency (ER) | payer BC ==
--- OUTSIDE RECORDS SUMMARY | 2023-10-30 05:25 | XMS REPORT | Continuity of Care Document ---
Author Name Unknown Address [address] [facility] [address] [place] [address] [facility] [employer]connect Address [address] [facility] [address] [place] [address] Care Team Providers Care Vp Software Support Name Role Phone Iftikhar Amaya Attending Clinician Héctor Carcamo Admitting Clinician Unavailable Payers Payer Name Policy Type Policy Number Effective Date Expirati on Date Source [facility] [id number] [facility] [id number] Allergies, Adverse Reactions, Alerts Allergy Name Allergy Type Status Severity Reaction(s) Onset Date Inactive Date Treating Clinician Comments Source epinephr yasmin DA Active U UNKNOWN 09-29 00:00: 00 [facility] Insect Stings EA Active Dick [employer] Bro Wasp EA Active [employer] No Known/Ne w Allergie s Allergy Active [email or web address] [facility] Encounters Start Date/Time End Date/Time Encounter Type Admission Type Attending Clinicians Care Facility Care Department Encounter ID Source 2023-10-20 09:10:28 Emergency [facility] [id number] [facility] ent 2023-09-29 14:40:00 Outpatient [facility] [id number] [facility] 2023-09-28 14:55:02 Outpatient [facility] [id number] [facility] 2023-09-30 06:51:00 2023-09-30 12:28:00 Emergency EM Iftikhar Amaya [facility] [id number] [facility] 2023-06-16 00:00:00 2023-06-16 00:00:00 Outpatient [facility] [id number] [facility] 2023-05-17 00:00:00 2023-05-17 00:00:00 Outpatient [facility] [id number] [facility] 2023-05-03 00:00:00 2023-05-03 00:00:00 Outpatient [facility] [id number] [facility] 2023-04-05 00:00:00 2023-04-05 00:00:00 Outpatient [facility] [id number] [facility] 2023-03-27 00:00:00 2023-03-27 00:00:00 Outpatient [facility] [id number] [facility] 2023-03-23 00:00:00 2023-03-23 00:00:00 Outpatient [facility] [id number] [facility] 2023-03-07 00:00:00 2023-03-07 00:00:00 Outpatient [facility] [id number] [facility] 2023-02-21 00:00:00 2023-02-21 00:00:00 Outpatient [facility] [id number] [facility] 2023-02-17 00:00:00 2023-02-17 00:00:00 Outpatient [facility] [id number] [facility] 2023-02-07 00:00:00 2023-02-07 00:00:00 Outpatient [facility] [id number] [facility] 2023-01-20 00:00:00 2023-01-20 00:00:00 Outpatient [facility] [id number] [facility] Results Test Description Test Time Test Comments Results Result Co mments Source [id number] 09:24:00* Test Item Value Reference Range Interpretation Comme nts D-DIMER (test code = DDIMER) <215 ng/mLFEU 215-500 L THROMBOSIS AND/O R PULMONARY EMBOLISM AND THE CLINICAL CUT-OFF VALUE FOR EXCLUSION (500 ng/mL FEU) OF THESE CONDITIONSIS VALIDATED BY THE HOOD FITTER OF THE METHOD. A NEGATIVE D-DIMER RESULT WHEN COMBINED WITH A CLINICALASSESSMENT OF LOW PRETEST PROBABILITY HAS BEEN SHOWN TO HAVEA HIGH NEGATIVE PREDICTIVE VALUE OF DVT OR PE. D-DIMER VALUES >500 ng/mL FEU ARE NOT DIAGNOSTIC FOR DVT, PEor DIC WITHOUT OTHER CONFIRMATORY TESTS AND APPROPRIATECLINICAL EUALUATIONS. BASIC METABOLIC [id number] 08:50:00* Test Item Value Reference Range Interpretation [...] CA) 9.4 MG/DL 8.5-10.1 N HEPATIC FUNCTION [id number] 08:50:00* Test Item Value Reference Range Interpretation [...] ode = CK) 75 Unit/L 21-215 N [id number] 08:50:00* Test Item Value Reference Range Interpretation Comme nts LIPASE (test code = LIP) 39 Unit/L 13-75 N NT PRO-BRAIN NATRIURETIC [id number] 08:50:00* Test Item Value Reference Range Interpretation Comme nts NT PRO-BRAIN NATRIURETIC PEP TI (test code = PROBNP) 101 PG/ML 0-100 H TROP-I HIGH [id number] 08:50:00* Test Item Value Reference Range Interpretation [...] Notes Date/Time Note Provider Source 2023-09-30 07:41:00 [facility] ([facility]) EMERGENCY PROVIDER REPORT REPORT#:[id number] REPORT STATUS: Signed DATE:09/30/23 TIME:740 PATIENT: SANAZ JAY UNIT #: [id number] ROOM/BED: : 61 AGE: 63 SEX: M PCP PHYS: Héctor Hebert MD SERVICE AUTHOR: Iftikhar Amaya MD * ALL edits or amendments must be made on the electronic/computer document * HPI-General Illness Free Text HPI Notes Free Text HPI Notes ##HPI Patient with reported history of hypertension diabetes presents today with concerns of chest pain. Patient reports she lives at a retirement house. Patient was in an argument with [...] 719, shows ventricular rate of 60, normal [place] interval, normal QRS, normal QTc.. EKG does [...] after arguing with a person at a retirement home. On presentation, patient denies active chest [...] B/P 101/58 07/27 0654 B/P Mean 72 09/29 653 O2 Delivery Room air 09/29 653 Temp [...] DISCHARGE INSTRUCTIONS--- follow-up as an outpatient with metal model builder Even though you have been discharged from [...] Provider Referral: Jenni Nieto MD Address: [address] [place] [address] Provider Referral: Donnie Ruvalcaba MD Address: [address] [place] [address] Provider Referral: Vance Vizcarra MD Address: [facility] [place] [address] Provider Referral: Amalia Marinelli MD Address: [address] [place] [address] [address] [place] [address] Provider Referral: Marta Lee MD Address: [address] [place], [place] [address] [place] [address] Provider Referral: Corby Nettles MD Address: [address] [place] [address] [address] Provider Referral: Carter Lemos MD Address: [address] [facility] [address] [place] [address] Provider Referral: Osmel Ferrari MD Address: [address] [facility] [address] [place] [address] Provider Referral: Katherine Mcneal NP Address: [id number] [place] [address] [address] [place] [address] Provider Referral: Juan Carlos Abdi MD Address: [address] [facility] [address] [place] [address] Provider Referral: Enriqueta Mccarthy APRN Address: [address] [place] [address] Provider Referral: Guerita Owens III, III, MD Address: [address] [facility] [address] [place] [address] Provider Referral: Christopher Fermin MD Address: [address] [facility] [address] [place] [address] Provider Referral: Elie Alonzo MD Address: [address] [facility] [address] [place] [address] at [address] RPT #: [id number] END OF REPORT HCAPM
--- NOTE | 2023-10-30 06:44 | ER ---
Nurse's Notes [facility] Name: Wilver Mott Age: 63 yrs Sex: Male : 1960 Arrival Date: 10/30/2023 Time: 05:23 Bed 8 Private MD: Diagnosis: Chest pain, unspecified Presentation: 10/29 05:30 Chief complaint: EMS states: toned our for chest pain. all v/s were normal and EKG is bm8 normal. pt stated that she really just needed a ride to get closer to a pharmacy. Coronavirus screen: At this time, the client does not indicate any symptoms associated with coronavirus-19. Ebola Screen: Patient negative for fever greater than or equal to 101.5 degrees Fahrenheit, and additional compatible Ebola Virus Disease symptoms Patient denies exposure to infectious person. Patient denies travel to an Ebola-affected area in the 21 days before illness onset. No symptoms or risks identified at this time. Initial Sepsis Screen: Does the patient meet any 2 criteria? No. Patient's initial sepsis screen is negative. Does the patient have a suspected source of infection? No. Patient's initial sepsis screen is negative. Risk Assessment: Do you want to hurt yourself or someone else? Patient reports no desire to harm self or others. Onset of symptoms is unknown. Care prior to arrival: 05:30 Method Of Arrival: EMS: [facility] bm8 05:30 Acuity: CHAD 4 bm8 Triage Assessment: 05:35 General: Appears in no apparent distress. comfortable, Behavior is calm, cooperative, bm8 appropriate for age. Pain: Complains of pain in chest Pain currently is 2 out of 10 on a pain scale. EENT: No deficits noted. No signs and/or symptoms were reported regarding the EENT system. Neuro: No deficits noted. Level of Consciousness is awake, alert, obeys commands, Oriented to person, place, time, situation, Appropriate for age. Cardiovascular: No deficits noted. Reports chest pain, Heart tones S1 S2 present Capillary refill < 3 seconds Patient's skin is warm and dry. Respiratory: No deficits noted. Airway is patent Respiratory effort is even, unlabored, Respiratory pattern is regular, symmetrical. GI: No deficits noted. No signs and/or symptoms were reported involving the gastrointestinal system. : No deficits noted. No signs and/or symptoms were reported regarding the genitourinary system. Derm: No deficits noted. No signs and/or symptoms reported regarding the dermatologic system. Musculoskeletal: No deficits noted. No signs and/or symptoms reported regarding the musculoskeletal system. Historical: - Allergies: 05:35 No Known Allergies; bm8 - Home Meds: 05:35 Unable to obtain [Active]; bm8 - PMHx: 05:35 diabetes mellitus; Hyperlipidemia; Hypertensive disorder; insomnia; Seizure; bm8 - PSHx: 05:35 gastric sleeve; Tonsillectomy; bm8 - Immunization history:: Adult Immunizations unknown. - Infectious Disease History:: Denies. - Social history:: Smoking status: Patient reports the use of cigarette tobacco products. - Family history:: not pertinent. Screenin:36 [facility] ED Fall Risk Assessment (Adult) History of falling in the last 3 months, bm8 including since admission No falls in past 3 months (0 pts) Confusion or Disorientation No (0 pts) Intoxicated or Sedated No (0 pts) Impaired Gait No (0 pts) Mobility Assist Device Used No (0 pt) Altered Elimination No (0 pt) Score/Fall Risk Level 0 - 2 = Low Risk Oriented to surroundings, Maintained a safe environment, Educated pt \T\ family on fall prevention, incl call for assistance when getting out of bed, Assessed \T\ reinforced patient's understanding of fall precautions, Hourly rounding (assess needs \T\ fall precautionary measures) done, Used ambulatory aids as needed (educated on \T\ assisted with), Used gait belt as appropriate. Abuse screen: Denies threats or abuse. Nutritional screening: No deficits noted. Tuberculosis screening: No symptoms or risk factors identified. Assessment: 05:36 Reassessment: see triage note. bm8 06:48 General: Appears in no apparent distress. comfortable, Behavior is calm, cooperative, bm8 appropriate for age. Pain: Complains of pain in right foot and left foot Pain currently is 6 out of 10 on a pain scale. Quality of pain is described as aching. Neuro: No deficits noted. Level of Consciousness is awake, alert, obeys commands, Oriented to person, place, time, situation, Appropriate for age. Cardiovascular: Denies chest pain, Heart tones S1 S2 present Capillary refill < 3 seconds Patient's skin is warm and dry. Rhythm is sinus rhythm. Respiratory: Airway is patent Trachea midline Respiratory effort is even, unlabored, Respiratory pattern is regular, symmetrical, Breath sounds are clear bilaterally. GI: No deficits noted. No signs and/or symptoms were reported involving the gastrointestinal system. : No signs and/or symptoms were reported regarding the genitourinary system. EENT: No signs and/or symptoms were reported regarding the EENT system. Derm: No signs and/or symptoms reported regarding the dermatologic system. Musculoskeletal: Reports pain in right foot and left foot. Vital Signs: 05:30 BP 112 / 70; Pulse 65; Resp 17; Temp 98.7; Pulse Ox 97% on R/A; Pain 2/10; bm8 06:48 BP 125 / 59; Pulse 66; Resp 17; Temp 98.7; Pulse Ox 100% ; Pain 6/10; bm8 05:30 Pain Scale: Adult bm8 06:48 Pain Scale: Adult bm8 [place] Coma Score: 05:36 Eye Response: spontaneous(4). Motor Response: obeys commands(6). Verbal Response: bm8 oriented(5). Total: 15. 06:48 Eye Response: spontaneous(4). Motor Response: obeys commands(6). Verbal Response: bm8 oriented(5). Total: 15. ED Course: 05:27 Patient arrived in ED. rv1 05:27 Gato Sanches MD is Attending Physician. rt 05:29 Castillo Dumont, RN is Primary Nurse. bm8 05:35 Triage completed. bm8 05:35 Arm band placed on right wrist. bm8 05:36 Patient has correct armband on for positive identification. Call light in reach. Side bm8 rails up X 1. Side rails up X2. Client placed on continuous cardiac and pulse oximetry monitoring. NIBP monitoring applied. personnel monitor on. Pulse ox on. NIBP on. Door closed. Warm blanket given. Verbal reassurance given. 05:36 No provider procedures requiring assistance completed. bm8 06:05 Initial lab(s) drawn, by ED staff, sent to lab. EKG done, by ED staff, reviewed by Gato Sanches MD. 06:48 Provided Education on: post er care. bm8 06:48 Patient did not have IV access during this emergency room visit. bm8 Administered Medications: No medications were administered Medication: 05:36 VIS not applicable for this client. bm8 Outcome: 06:44 Discharge ordered by . rt 06:48 Discharged to home ambulatory, bm8 06:48 Condition: stable 06:48 Discharge instructions given to patient, Instructed on discharge instructions, follow up and referral plans. medication usage, safety practices, Demonstrated understanding of instructions, follow-up care, medications, 06:51 Patient left the ED. bm8 Signatures: Gato Sanches MD MD rt [address] rv1 Castillo Dumont, RN RN bm8 Corrections: (The following items were deleted from the chart) 05:35 05:35 Home Meds: None; bm8 bm8
--- NOTE | 2023-10-30 06:44 | EDPHYS ---
Physician Documentation [facility] Name: Wilver Mott Age: 63 yrs Sex: Male : 1960 Arrival Date: 10/30/2023 Time: 05:23 Bed 8 Private MD: ED Physician Gato Sanches HPI: 10/29 06:06 This 63 yrs old Male presents to ER via EMS with complaints of Chest pain. 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 rt Patient was seen in the ED earlier this evening, had 2 negative troponins, unremarkable EKGs. Was sent home on Keflex for cellulitis. States that patient was walking try to find their hotel room, reports the pain worsened. Called EMS. Per EMS report, stated that was not looking for a ride to get closer to a pharmacy. Patient did not mention this to me. States that pain is better now. Denies other acute complaints at this time, symptoms are moderate in severity, no other aggravating or elevating factors.. Historical: - Allergies: 05:35 No Known Allergies; bm8 - Home Meds: 05:35 Unable to obtain [Active]; bm8 - PMHx: 05:35 diabetes mellitus; Hyperlipidemia; Hypertensive disorder; insomnia; Seizure; bm8 - PSHx: 05:35 gastric sleeve; Tonsillectomy; bm8 - Immunization history:: Adult Immunizations unknown. - Infectious Disease History:: Denies. - Social history:: Smoking status: Patient reports the use of cigarette tobacco products. - Family history:: not pertinent. ROS: 06:06 Constitutional: Negative for fever, chills, and weight loss, Respiratory: Negative for rt shortness of breath, cough, wheezing, and pleuritic chest pain, Abdomen/GI: Negative for abdominal pain, nausea, vomiting, diarrhea, and constipation, MS/Extremity: Negative for injury and deformity, Skin: Negative for injury, rash, and discoloration, Neuro: Negative for headache, weakness, numbness, tingling, and seizure, 06:06 Cardiovascular: Positive for chest pain, Negative for edema, Exam: 06:06 Constitutional: This is a well developed, well nourished patient who is awake, alert, rt and in no acute distress. Head/Face: Normocephalic, atraumatic. Chest/axilla: Normal chest wall appearance and motion. Nontender with no deformity. No lesions are appreciated. Cardiovascular: Regular rate and rhythm with a normal S1 and S2. No gallops, murmurs, or rubs. Normal PMI, no JVD. No pulse deficits. Respiratory: Lungs have equal breath sounds bilaterally, clear to auscultation and percussion. No rales, rhonchi or wheezes noted. No increased work of breathing, no retractions or nasal flaring. Abdomen/GI: Soft, non-tender, with normal bowel sounds. No distension or tympany. No guarding or rebound. No evidence of tenderness throughout. Skin: Warm, dry with normal turgor. Normal color with no rashes, no lesions, and no evidence of cellulitis. MS/ Extremity: Pulses equal, no cyanosis. Neurovascular intact. Full, normal range of motion. 06:06 ECG was reviewed by the Attending Physician. Vital Signs: 05:30 BP 112 / 70; Pulse 65; Resp 17; Temp 98.7; Pulse Ox 97% on R/A; Pain 2/10; bm8 06:48 BP 125 / 59; Pulse 66; Resp 17; Temp 98.7; Pulse Ox 100% ; Pain 6/10; bm8 05:30 Pain Scale: Adult bm8 06:48 Pain Scale: Adult bm8 [place] Coma Score: 05:36 Eye Response: spontaneous(4). Motor Response: obeys commands(6). Verbal Response: bm8 oriented(5). Total: 15. 06:48 Eye Response: spontaneous(4). Motor Response: obeys commands(6). Verbal Response: bm8 oriented(5). Total: 15. MDM: 05:36 Patient medically screened. rt 06:44 Differential Diagnosis Nonspecific chest pain, ACS. Data reviewed: vital signs, nurses rt notes, lab test result(s), EKG. Consideration of Admission/Observation Escalation of care including admission/observation considered. Patient has essentially 3 negative troponins today. Unremarkable EKG. Symptoms are typical of an acute coronary syndrome. Does not require admission at this time, stable for outpatient care.. Test considered but Not performed: Other Details Patient had a chest x-ray, other labs performed only few hours ago, repeat CBC not indicated except with troponin. Care significantly affected by the following chronic conditions: Diabetes. Counseling: I had a detailed discussion with the patient and/or guardian regarding the historical points, exam findings, and any diagnostic results supporting the discharge/admit diagnosis, lab results, the need for outpatient follow up, to return to the emergency department if symptoms worsen or persist or if there are any questions or concerns that arise at home. 10/29 05:41 Order name: Troponin High Sensitivity; Complete Time: 06:30 rt 10/29 05:41 Order name: EKG; Complete Time: 05:42 rt 10/29 05:41 Order name: EKG - Nurse/Tech; Complete Time: 06:05 rt EC:06 Rate is 71 beats/min. Rhythm is regular, Normal Sinus Rhythm with No ectopy. QRS [place] rt is Normal. PA interval is normal. QRS interval is normal. QT interval is normal. No Q waves. T waves are Normal. No ST changes noted. Interpreted by me. Administered Medications: No medications were administered Disposition Summary: 10/30/23 06:44 Discharge Ordered Notes: Location: Home rt Problem: an ongoing problem rt Symptoms: have improved rt Condition: Stable rt Diagnosis - Chest pain, unspecified rt Followup: rt - With: Private Physician - When: 2 - 3 days - Reason: Discharge Instructions: - Discharge Summary Sheet rt - Nonspecific Chest Pain, Adult rt Forms: - Medication Reconciliation Form rt - Antibiotic Education rt - Prescription Opioid Use rt - Patient Portal Instructions rt - Leadership Thank You Letter rt Signatures: Dispatcher [employer] EDMS Gato Sanches MD MD rt Castillo Dumont, RN RN bm8 Corrections: (The following items were deleted from the chart) 05:35 05:35 Home Meds: None; bm8 bm8 05:42 05:42 Troponin High Sensitivity+[id number].LAB.BRZ ordered. EDMS EDMS
[2023-10-30 07:17] VITALS: TEMP 98.7
[2023-10-30 07:19] VITALS: BP 125/59; O2SAT 100
--- NOTE | 2023-10-30 09:58 | EKG ---
Test Date: 2023-10-30 Test Time: 06:02:48 Senior Instructor: GERALDO MEASUREMENT RESULTS: Intervals: Rate: 71 CA: 158 QRSD: 82 QT: 384 QTc: 417 [place]: P: 71 CA: 158 QRS: 62 T: 67 INTERPRETIVE STATEMENTS: Normal sinus rhythm Normal ECG Compared to ECG 10/29/2023 21:44:24 No significant changes Electronically Signed On 10-30-23 09:58:01 CDT by Vamshi Piña
== END 2023-10-30 06:51 | disposition home or self-care (01) ==
LOC: ER 05:23
DX: R07.9 Chest pain, unspecified (principal); I10 Essential (primary) hypertension; I25.2 Old myocardial infarction; F17.210 Nicotine dependence, cigarettes, uncomplicated
CPT/HCPCS: 36415; 84484; 93005; 99284